=== PATIENT | female | born 1975 | race Caucasian/White ===

== ENCOUNTER 2017-04-17 23:29 | Emergency (ER) | payer BC ==
[~2017-04-17] VITALS: Ht 162.6 cm; Wt 89.8 kg
[2017-04-17] MEDS ORDERED: ONDANSETRON HCL 4 MG ORAL DISINTEGRATING TAB ONE (23:56)
[2017-04-17] MEDS ORDERED: ACETAMINOPHEN 325 MG TAB ONE (23:56)
[2017-04-18] MEDS ORDERED: ACETAMINOPHEN 325 MG TAB PO ONE
[2017-04-18] MEDS ORDERED: ONDANSETRON HCL 4 MG ORAL DISINTEGRATING TAB PO ONE
--- NOTE | 2017-04-18 00:36 | Diagnostic Imaging Report ---
History: Fall Comparison studies: None Technique: Axial images were obtained from the skull base to the vertex. Coronal and sagittal reconstructions obtained from the axial data. Findings: Scalp/skull: An acute right frontal scalp hematoma is not associated with subcutaneous emphysema or with hyperdense foreign bodies. No underlying fractures. Extra-axial spaces: No masses. No fluid collections. Brain sulci: Appropriate for age. Ventricles: Normal in size and configuration. No hydrocephalus. Parenchyma: No abnormal densities. No masses, hemorrhage, acute or chronic cortical vascular insults. Sellar/suprasellar region: No abnormalities Craniocervical junction: Patent foramen magnum. No Chiari one malformation. IMPRESSION: 1. Focal acute right frontal scalp hematoma. 2. No fractures. 3. No intracranial abnormalities. Signed by: Dr. Ashkan Estrella M.D. on 04/18/2017 12:32 AM
== END 2017-04-18 02:31 | disposition home or self-care (01) ==
LOC: ER 23:29
DX: S06.0X0A Concussion without loss of consciousness, initial encounter (principal); S00.83XA Contusion of other part of head, initial encounter; W50.0XXA Accidental hit or strike by another person, initial encounter; Y92.008 Other place in unspecified non-institutional (private) residence as the place of occurrence of the external cause; E03.9 Hypothyroidism, unspecified
CPT/HCPCS: 70450; 99283